=== PATIENT | male | born 1985 | race Two or more races ===

== ENCOUNTER 2018-04-30 13:03 | Emergency (ER) | payer OTHER ==
[~2018-04-30] VITALS: Ht 175.3 cm; Wt 79.4 kg
[2018-04-30 13:28] VITALS: BP 113/71
[2018-04-30] MEDS ORDERED: BACITRACIN-POLYMYXIN B TOPICAL OINT UD TOP ONE (14:15)
== END 2018-04-30 14:11 ==
LOC: ER 13:10 → EEVIPCON 13:10 → ER 14:11
DX: S81.811A Laceration without foreign body, right lower leg, initial encounter (principal); W22.8XXA Striking against or struck by other objects, initial encounter; Y93.39 Activity, other involving climbing, rappelling and jumping off; Y99.8 Other external cause status; Y92.89 Other specified places as the place of occurrence of the external cause
CPT/HCPCS: 12002